=== PATIENT | male | born 1990 | race Caucasian/White ===

== ENCOUNTER 2019-05-25 22:24 | Emergency (ER) | payer OTHER, SELFPAY ==
--- NOTE | ~2019-05-25 | XR_ITS ---
EXAMINATION: XR hand RT min 3V DATE: 05/25/2019 22:50 INDICATION: Pain and swelling at the fifth metacarpal the right hand after punching a wall. TECHNIQUE: Posteroanterior, oblique and lateral views of the right hand were obtained. COMPARISON: None. FINDINGS: Alignment is normal. Mild palmar bowing of the right fifth metacarpal suggesting possible old healed fracture. No acute fracture. Joint spaces are normal. Soft tissue swelling over the dorsum of the lucas d. IMPRESSION: 1. No acute osseous abnormality. Reviewed, dictated and finalized at location [facility]
[2019-05-25 22:27] VITALS: BP 145/98; PULSE 95; RESP 22; TEMP 36.1; O2SAT 100
--- NOTE | 2019-05-25 23:02 | ED.GENADULT ---
HPI - General Adult General Chief complaint: Extremity Injury, Upper Stated complaint: finger injury Time Seen by Provider: 05/25/19 22:28 Source: patient Mode of arrival: ambulatory Limitations: no limitations History of Present Illness HPI narrative: Patient is a 28-year-old male who presents with right hand injury after punching a solid object just prior to arrival with bruising over the fifth MCP joint is mild aching pain worse with activity and movement denies radicular symptoms or paresthesias. Has not taken anything for his symptoms Related Data Allergies Allergy/AdvReac Type Severity Reaction Status Date / Time No Known Allergies Allergy Unverified 12/22/15 02:17 Review of Systems Review of Systems: Narrative: CONSTITUTIONAL: Denies fever, chills, or sweats. SKIN: Positive for bruising and swelling MUSCULOSKELETAL: Denies back pain, joint pain, or myalgia. NEUROLOGIC: Denies numbness, or weakness. PMFSH Social History Social History Gender identity (if verbalized by the patient): Male Exam Narrative: Exam Narrative: GENERAL: Well-appearing, well-nourished, and in no acute distress. HEAD: Normocephalic, atraumatic. EYES: PERRLA and EOMI. ENT: Nares clear, no rhinorrhea or epistaxis. Mucous membranes moist. EXTREMITIES: Normal range of motion. No edema. Bruising and tenderness over the fifth MCP joint SKIN: Warm, dry, no rash. NEURO: No focal deficits. Alert and oriented x3. Neurovascularly intact PSYCH: Normal mood and affect. Course Vital Signs Vital signs: Vital Signs Temperature 97.0 F L 05/25/19 22:27 Pulse Rate 95 05/25/19 22:27 Respiratory Rate 22 H 05/25/19 22:27 Blood Pressure 145/98 H 05/25/19 22:27 Pulse Oximetry 100 05/25/19 22:27 Temperature 97.0 F L 05/25/19 22:27 Pulse Rate 95 05/25/19 22:27 Respiratory Rate 22 H 05/25/19 22:27 Blood Pressure 145/98 H 05/25/19 22:27 Pulse Oximetry 100 05/25/19 22:27 Medical Decision Making MDM Narrative Medical decision making narrative: Patients injury or pain is consistent with musculoskeletal etiology. No signs of neurological or vascular compromise on exam. Compartments and tisues are soft without signs of compartment syndrome. Pain is felt appropriate for further evaluation on an outpatient basis. Vital Signs Vital Signs: Vital Signs Temperature 97.0 F L 05/25/19 22:27 Pulse Rate 95 05/25/19 22:27 Respiratory Rate 22 H 05/25/19 22:27 Blood Pressure 145/98 H 05/25/19 22:27 Pulse Oximetry 100 05/25/19 22:27 Temperature 97.0 F L 05/25/19 22:27 Pulse Rate 95 05/25/19 22:27 Respiratory Rate 22 H 05/25/19 22:27 Blood Pressure 145/98 H 05/25/19 22:27 Pulse Oximetry 100 05/25/19 22:27 Imaging Data Radiologist's impression: ITS Impressions Hand X-Ray 05/25/19 22:54 IMPRESSION: 1. No acute osseous abnormality. Discharge Plan Discharge Clinical Impression: Contusion of hand, right Patient Disposition: Home, Self-Care Condition: Stable Instructions: Antibiotic Form, Contusion in Adults (ED) Additional Instructions: Follow-up with primary care in the next 7 days for reevaluation Return if symptoms worsen or concerns Follow patient education sheets Follow-up/Referrals: UNKNOWN,DOCTOR [Primary Care Provider] -
[2019-05-25 23:18] VITALS: BP 131/80; PULSE 91; RESP 16; O2SAT 97
== END 2019-05-25 23:20 | disposition home or self-care (01) ==
PROVIDERS: Emergency Provider Emergency Medicine
DX: S60.221A Contusion of right hand, initial encounter (principal); W22.8XXA Striking against or struck by other objects, initial encounter
CPT/HCPCS: 73130; 99283